=== PATIENT | female | born 1990 | race Caucasian/White ===

== ENCOUNTER 2018-10-15 23:35 | Inpatient (IN) | payer OTHER ==
[2018-10-16] MEDS: ONDANSETRON 4 MG INJ IV ×2 (01:57→09:22)
[2018-10-16] MEDS: morphine 4 MG/ML VIAL IV ×2 (01:58→03:37)
[2018-10-16 02:13] LABS: ADD MAN DIFF? NO
[2018-10-16 02:15] LABS: WHITE BLOOD COUNT 19.2 10^3/ul (4.8-10.8)
[2018-10-16 02:15] LABS: BASOPHIL # 0.1 10^3/ul (0.0-0.1); BASOPHILS % 0.4 % (0.0-2.0); EOSINOPHILS % 0.1 % (0.0-7.0); HEMATOCRIT 39.3 % (37.0-47.0); HEMOGLOBIN 13.5 g/dl (12.0-16.0); LYMPHOCYTES # 1.3 10^3/ul (0.8-2.9); LYMPHOCYTES % 6.9 % (15.0-51.0); MEAN CORPUSCULAR HEMOGLOBIN 29.9 pg (29.0-33.0); MEAN CORPUSCULAR HGB CONC 34.4 g/dl (32.0-37.0); MEAN CORPUSCULAR VOLUME 86.9 fl (82.0-101.0); MEAN PLATELET VOLUME 10.4 fl (7.4-10.4); MONOCYTE # 0.9 10^3/ul (0.3-0.9); MONOCYTES % 4.6 % (0.0-11.0); NEUTROPHIL # 16.8 10^3/ul (1.6-7.5); NEUTROPHILS % 87.6 % (39.0-77.0); PLATELET COUNT 304 10^3/UL (140-415); RED BLOOD COUNT 4.52 10^6/ul (4.20-5.40); RED CELL DISTRIBUTION WIDTH 12.2 % (11.5-14.5)
[2018-10-16 02:35] LABS: ALANINE AMINOTRANSFERASE 24 IU/L (13-69); ALBUMIN 4.8 g/dl (3.3-4.9); ALKALINE PHOSPHATASE 73 IU/L (42-121); ANION GAP 15 (5-13); ASPARTATE AMINO TRANSFERASE 26 IU/L (15-46); BILIRUBIN,INDIRECT 0.5 mg/dl (0-1.1); BILIRUBIN,TOTAL 0.5 mg/dl (0.2-1.3); BLOOD UREA NITROGEN 13 mg/dl (7-20); CALCIUM 9.4 mg/dl (8.4-10.2); CARBON DIOXIDE 25 mmol/L (21-31); CHLORIDE 102 mmol/L (97-110); CREATININE 0.64 mg/dl (0.44-1.00); Estimated GFR > 60 mL/min (>60); GLUCOSE 131 mg/dl (70-220); LIPASE 62 U/L (23-300); POTASSIUM 3.8 mmol/L (3.5-5.1); SODIUM 142 mmol/L (135-144)
[2018-10-16] MEDS: IOHEXOL 300MG/ML 150 ML BTL (03:12)
[2018-10-16] MEDS: SOD CHLORIDE 0.9% 100 ML (03:12)
[2018-10-16] MEDS: PIPER-TAZO 3.375 GM IV (PMX) 100 ML IVPB ×7 (03:32→23:36)
[2018-10-16] MEDS: SOD CHLORIDE 0.9% 1,000 ML IV ×3 (03:32→16:33)
[2018-10-16 03:43] LABS: INR 0.96; PROTIME 12.9 Sec (11.9-14.9)
[2018-10-16 03:44] LABS: PARTIAL THROMBOPLASTIN TIME 24.4 Sec (23.0-35.0)
[2018-10-16 05:58] LABS: ADD UMIC YES; UR ASCORBIC ACID NEGATIVE (NEGATIVE); UR BILIRUBIN (Dip) NEGATIVE (NEGATIVE); UR BLOOD (Dip) 2+ mg/dL (NEGATIVE); UR CLARITY CLEAR (CLEAR); UR COLOR STRAW (YELLOW); UR GLUCOSE (Dip) NEGATIVE (NEGATIVE); UR KETONES (Dip) 2+ mg/dL (NEGATIVE); UR LEUKOCYTE ESTERASE (Dip) NEGATIVE Leu/ul (NEGATIVE); UR NITRITE (Dip) NEGATIVE (NEGATIVE); UR RBC 0 /HPF (0-5); UR SPECIFIC GRAVITY (Dip) 1.047 (1.003-1.030); UR TOTAL PROTEIN (Dip) NEGATIVE (NEGATIVE); UR UROBILINOGEN (Dip) NEGATIVE (NEGATIVE); UR WBC 1 /HPF (0-5)
[2018-10-16] MEDS ORDERED: MAGNESIUM HYDROXIDE 30ML CUP PO (06:30)
[2018-10-16] MEDS ORDERED: ACETAMINOPHEN 325 MG TAB PO ×2 (06:30→18:00)
[2018-10-16] MEDS ORDERED: LORAZEPAM 2 MG INJ IV (06:30)
[2018-10-16] MEDS ORDERED: NITROGLYCERIN (SL) 0.4 MG TAB SL (06:30)
[2018-10-16] MEDS ORDERED: NACL 0.9% 3 ML SYG IV (06:30)
[2018-10-16] MEDS ORDERED: ALBUTEROL/IPRATROPIUM (NEB) 3 ML AMP HHN (06:30)
[2018-10-16] MEDS ORDERED: DOCUSATE SODIUM 100 MG CAP PO (06:30)
[2018-10-16] MEDS ORDERED: HYDROCODONE/APAP (5/325) TAB PO ×2 (06:30→18:00)
[2018-10-16] MEDS ORDERED: NEOSTIGMINE 3 MG/3 ML SYRINGE ×2 (07:00→18:15)
[2018-10-16] MEDS ORDERED: DESFLURANE 15 MIN (07:00)
[2018-10-16] MEDS ORDERED: SUCCINYLCHOLINE CHLORIDE 100 MG/5 ML SYG IV (07:00)
[2018-10-16] MEDS: morphine SULFATE/PF (2 MG/2 ML) SYG IV ×2 (07:37→14:49)
[2018-10-16 08:41] LABS: INR 1.03; PROTIME 13.6 Sec (11.9-14.9); PT RATIO 1.1
[2018-10-16 08:42] LABS: PARTIAL THROMBOPLASTIN TIME 27.5 Sec (23.0-35.0)
[2018-10-16] MEDS: HEPARIN 5,000 UNIT/1 ML VIAL SC ×2 (09:00→21:40)
[2018-10-16] MEDS ORDERED: IPRATROPIUM (NEB) 0.5 MG/2.5 ML AMP HHN (17:30)
[2018-10-16] MEDS ORDERED: hydrALAzine 20 MG INJ IV (17:30)
[2018-10-16] MEDS ORDERED: HYDROmorphONE 1 MG/5 ML IV SYRINGE IV ×3 (17:30)
[2018-10-16] MEDS ORDERED: MEPERIDINE 25 MG INJ IV (17:30)
[2018-10-16] MEDS ORDERED: OXYCODONE/ACETAMINOPHEN (5/325) TAB PO ×2 (17:30)
[2018-10-16] MEDS ORDERED: MIDAZOLAM 1 MG/ML 2 ML INJ IV (17:30)
[2018-10-16] MEDS ORDERED: EPHEDrine SULFATE 50 MG/5 ML SYG IV (17:30)
[2018-10-16] MEDS ORDERED: ALBUTEROL 0.083% (NEB) 2.5 MG/3 ML AMP HHN (17:30)
[2018-10-16] MEDS ORDERED: DIPHENHYDRAMINE 50 MG INJ IV (17:30)
[2018-10-16] MEDS ORDERED: FENTAnyl 50 MCG/ML VIAL IV ×3 (17:30)
[2018-10-16] MEDS ORDERED: LABETALOL HCL 20MG INJ IV (17:30)
[2018-10-16] MEDS ORDERED: TRIMETHOBENZAMIDE 100 MG/ML VIAL IM (17:30)
[2018-10-16] MEDS ORDERED: ONDANSETRON 4 MG INJ IV ×2 (17:30→18:00)
[2018-10-16] MEDS ORDERED: ROCURONIUM 50 MG INJ (17:42)
[2018-10-16] MEDS ORDERED: PROPOFOL 20 ML (17:42)
[2018-10-16] MEDS ORDERED: CEFAZOLIN 1 GM INJ (17:42)
[2018-10-16] MEDS ORDERED: GLYCOPYRROLATE 0.4 MG INJ (17:42)
[2018-10-16] MEDS ORDERED: DEXAMETHASONE 4 MG/ML 5 ML INJ (17:43)
[2018-10-16] MEDS ORDERED: ONDANSETRON 4 MG INJ (17:43)
[2018-10-16] MEDS ORDERED: FENTAnyl 50 MCG/ML VIAL (17:43)
[2018-10-16] MEDS ORDERED: MIDAZOLAM 1 MG/ML 2 ML INJ (17:43)
[2018-10-16] MEDS ORDERED: PIPER-TAZO 3.375 GM IV (PMX) 100 ML (17:46)
[2018-10-16] MEDS ORDERED: morphine SULFATE/PF (2 MG/2 ML) SYG IV (18:00)
[2018-10-16] MEDS ORDERED: KETOROLAC 30 MG INJ (18:12)
[2018-10-16] MEDS ORDERED: METOCLOPRAMIDE 10 MG INJ (18:14)
[2018-10-16] MEDS: BUPIVACAINE 0.25% (MPF) 30 ML INJ (18:37)
[2018-10-16] MEDS: LIDOCAINE 1%/EPI (1:100,000) (MDV) 20 ML (18:38)
[2018-10-16] MEDS: KETOROLAC 15 MG INJ IV ×2 (19:07→23:36)
[2018-10-16] MEDS: D5-NS + KCL 20 MEQ 1,000 ML IV (21:37)
[2018-10-17] MEDS: PIPER-TAZO 3.375 GM IV (PMX) 100 ML IVPB ×3 (00:39→12:02)
[2018-10-17] MEDS: SOD CHLORIDE 0.9% 1,000 ML IV (02:11)
[2018-10-17] MEDS: D5-NS + KCL 20 MEQ 1,000 ML IV ×2 (03:44→09:30)
[2018-10-17] MEDS: KETOROLAC 15 MG INJ IV ×2 (04:57→12:02)
[2018-10-17] MEDS: ENOXAPARIN 40 MG/0.4 ML SYG SC (06:17)
[2018-10-17] MEDS: morphine SULFATE/PF (2 MG/2 ML) SYG IV (09:27)
[2018-10-17] MEDS: HEPARIN 5,000 UNIT/1 ML VIAL SC (09:34)
[2018-10-17 10:04] LABS: ADD MAN DIFF? NO
[2018-10-17 10:06] LABS: WHITE BLOOD COUNT 15.6 10^3/ul (4.8-10.8)
[2018-10-17 10:06] LABS: BASOPHILS % 0.1 % (0.0-2.0); HEMOGLOBIN 11.3 g/dl (12.0-16.0); LYMPHOCYTES # 0.9 10^3/ul (0.8-2.9); LYMPHOCYTES % 5.7 % (15.0-51.0); MEAN CORPUSCULAR HEMOGLOBIN 29.7 pg (29.0-33.0); MEAN CORPUSCULAR HGB CONC 33.2 g/dl (32.0-37.0); MEAN CORPUSCULAR VOLUME 89.2 fl (82.0-101.0); MEAN PLATELET VOLUME 10.6 fl (7.4-10.4); MONOCYTE # 0.8 10^3/ul (0.3-0.9); MONOCYTES % 5.3 % (0.0-11.0); NEUTROPHIL # 13.7 10^3/ul (1.6-7.5); NEUTROPHILS % 88.4 % (39.0-77.0); PLATELET COUNT 243 10^3/UL (140-415); RED BLOOD COUNT 3.81 10^6/ul (4.20-5.40); RED CELL DISTRIBUTION WIDTH 12.8 % (11.5-14.5)
[2018-10-17 10:35] LABS: ANION GAP 10 (5-13); BLOOD UREA NITROGEN 6 mg/dl (7-20); CALCIUM 8.7 mg/dl (8.4-10.2); CARBON DIOXIDE 22 mmol/L (21-31); CHLORIDE 109 mmol/L (97-110); CREATININE 0.59 mg/dl (0.44-1.00); Estimated GFR > 60 mL/min (>60); GLUCOSE 147 mg/dl (70-220); POTASSIUM 3.8 mmol/L (3.5-5.1); SODIUM 141 mmol/L (135-144)
== END 2018-10-17 14:29 | disposition home or self-care (01) | DRG 343 ==
LOC: FTE 23:35 → MS1 10-16 03:44
PROC: 0DTJ4ZZ Resection of Appendix, Percutaneous Endoscopic Approach (ICD-10-PCS; principal; 2018-10-16 17:47)
DX: K35.80 Unspecified acute appendicitis (principal)
CPT/HCPCS: 36415; 74177; 80048; 80053; 81001; 83690; 84439; 84703; 85025; 85610; 85730; 88304; 96374; 96375; 96376; 99285-25